=== PATIENT | female | born 1995 | race Caucasian/White ===

== ENCOUNTER 2017-06-01 05:29 | Emergency (ER) | payer SELFPAY ==
[2017-06-01] MEDS ORDERED: Sodium Chloride 0.9% 1,000 ML IV SCH (05:45)
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
[2017-06-01] MEDS ORDERED: HYDROmorphone 0.5 MG/0.5 ML Syringe IVPUSH ONE (08:12)
[2017-06-01] MEDS ORDERED: Acetaminophen/oxyCODONE 325-5 MG Tab PO ONE (10:04)
[2017-06-01] MEDS ORDERED: Bacitracin Oint 1 GM U/D Packet TOP ONE (11:15)
[2017-06-01] MEDS ORDERED: Diphtheria,Pertussis(Acell),Tetanus Vaccine 0.5 ML SDV IM ONE (11:16)
--- NOTE | 2017-06-03 09:35 | CR ---
Chest 2V HISTORY: pain in mid thoracic spine, pain in upper ant left COMPARISON: None FINDINGS: Lungs appear clear and normally aerated. Cardiomediastinal silhouette is within normal limits for the AP technique. No vascular redistribution or pleural fluid can be seen. Bony structures and soft tiss ues are unremarkable. IMPRESSION: No acute chest abnormality identified.
--- NOTE | 2017-06-03 09:38 | CR ---
Thoracic Spine 3V HISTORY: pain in the mid t spine and upper chest--left FINDINGS: Thoracic vertebral body alignment is satisfactory. No compression fracture or disk space narrowing is seen. Spinous processes, posterior elements, and pedicles appear intact and in satisfactory alignmen t. Perivertebral soft tissues appear normal. IMPRESSION: No acute thoracic spine abnormality identified.
== END 2017-06-01 11:59 | disposition home or self-care (01) ==
LOC: JP.ED 05:29
DX: S06.0X9A Concussion with loss of consciousness of unspecified duration, initial encounter (principal); S14.109A Unspecified injury at unspecified level of cervical spinal cord, initial encounter; S20.212A Contusion of left front wall of thorax, initial encounter; S50.811A Abrasion of right forearm, initial encounter; V89.2XXA Person injured in unspecified motor-vehicle accident, traffic, initial encounter
CPT/HCPCS: 36415; 70450; 71046; 72072; 72125; 72128; 80053; 80305; 81001; 81025; 85025; 90471; 90715; 96361; 96374; 99284; A9270; G0480; J1170; J7040